=== PATIENT | female | born 1965 | race Caucasian/White ===

== ENCOUNTER 2022-09-04 14:33 | Outpatient (OUT) | payer OTHER, SELFPAY ==
--- NOTE | 2022-09-05 14:14 | ECG_ITS ---
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
[2022-09-05 15:56] LABS: Basophils Percent Auto 0.6 % (0.2-2.0); Eosinophils Absolute Auto 0.2 10^3/uL (0.0-0.7); Eosinophils Percent Auto 3.3 % (0.9-7.0); Hematocrit 38.5 % (36.0-48.0); Immature Granulocytes Abs Auto 0.02 10^3/uL (0.00-0.03); Immature Granulocytes Pct Auto 0.4 % (0.0-0.5); Lymphocytes Absolute Auto 1.4 10^3/uL (1.2-3.8); Lymphocytes Percent Auto 26.9 % (20.5-60.0); Mean Corpuscular HGB Conc 33.8 g/dL (29.9-35.2); Mean Corpuscular Hemoglobin 31.4 pg (26.7-34.0); Mean Platelet Volume 10.6 fL (9.5-13.5); Monocytes Absolute Auto 0.5 10^3/uL (0.3-0.8); Monocytes Percent Auto 9.6 % (1.7-12.0); Neutrophils Percent Auto 59.2 % (43.0-75.0); Platelet Count 249 10^3/uL (150-450); Red Blood Count 4.14 10^6/uL (4.20-5.40); Red Cell Distribution Width 12.9 % (11.0-15.0); White Blood Count 5.1 10^3/uL (4.0-11.0)
[2022-09-05 16:12] LABS: INR 0.96; Partial Thromboplastin Time 29.3 sec (22.3-36.2); Prothrombin Time 10.2 sec (9.0-11.6)
[2022-09-05 21:16] LABS: Alanine Aminotransferase 31 U/L (14-59); Albumin Globulin Ratio 1.2; Albumin Level 3.7 g/dL (3.4-5.0); Alkaline Phosphatase 53 U/L (46-116); Anion Gap 11.1; Aspartate Amino Transferase 28 U/L (15-37); BUN Creatinine Ratio 33.3; Bilirubin Direct 0.1 mg/dL (0.0-0.2); Bilirubin Total 0.4 mg/dL (0.2-1.0); Calcium 8.6 mg/dL (8.5-10.1); Carbon Dioxide 25.6 mmol/L (21.0-32.0); Chloride 102 mmol/L (98-107); Estimated GFR (African America >60 (>=60); Estimated GFR (Non-African Ame >60 (>=60); Globulin 3.2 g/dL; Glucose 96 mg/dL (74-106); Potassium 3.7 mmol/L (3.5-5.1); Sodium 135 mmol/L (136-145); Total Protein 6.9 g/dL (6.4-8.2)
== END 2022-09-04 14:34 | disposition home or self-care (01) ==
LOC: PST 10-16 14:33
PROVIDERS: Obstetrics & Gynecology; PCP Family Medicine
DX: Z01.812 Encounter for preprocedural laboratory examination (principal); Z01.810 Encounter for preprocedural cardiovascular examination; Z01.818 Encounter for other preprocedural examination; N81.3 Complete uterovaginal prolapse; R10.2 Pelvic and perineal pain; N94.10 Unspecified dyspareunia
CPT/HCPCS: 36415; 80048; 80076; 85025; 85610; 85730; 93005; G0463

== ENCOUNTER 2022-09-20 10:51 | Day surgery (SDC) | payer OTHER, SELFPAY ==
[2022-09-06 09:20] VITALS: PULSE 60; RESP 14; TEMP 36.5; O2SAT 98; BMI 27.4
--- NOTE | 2022-09-06 09:26 | P.GSHP_ITS ---
History of Present Illness History of Present Illness Chief complaint: HYSTERECTOMY Narrative: Patient presents for preadmission testing. The patient states she's been having pelvic pressure and painful intercourse and it has been determined that she has a prolapsed uterus. She is now scheduled for hysterectomy. She denies abdominal pain, nausea, vomiting, or any other complaints. Review of Systems ROS Narrative REVIEW OF SYSTEMS: Negative except as stated in HPI, ten or more systems reviewed. Constitutional: No feve r , chills, weakness ENT: No sore throat or epistaxis Cardiovascular: No edema, chest pain, or palpitations Respiratory: No shortness of breath, cough, or wheezing Musculoskeletal: No joint pain or swelling Gastrointestinal: No abdominal pain, constipation, diarrhea, or vomiting Genitourinary: No dysuria or hematuria Neurological: No numbness, tingling, weakness, or headache Psychiatric: No mood changes PFSH PFS Medical History (Updated 09/06/22 @ 09:23 by Bibiana Browne NP) Surgical History (Updated 09/06/22 @ 09:23 by Bibiana Browne NP) Family History (Updated 09/06/22 @ 09:23 by Bibiana Browne NP) Other CHF (congestive heart failure) Family history of diabetes mellitus Family history of heart disease Family history of hypertension Social History (Updated 09/06/22 @ 09:20 by Bibiana Browne NP) Within the past year, how often did you have a drink containing alcohol: 4 or more times a week Smoking status: Never smoker Non-prescribed substance use: denies use Previous occupational history: [employer] Highest level of school completed/degree received: high school graduate Meds [place] Medications and Allergies Allergies Allergy/AdvReac Type Severity Reaction Status Date / Time No Known Drug Allergies Allergy Verified 09/06/22 09:19 Exam Narrative Exam Narrative: Constitutional: Awake, alert, comfortable, well-appearing, nontoxic, interactive, vital signs as charted Head: Normocephalic, atraumatic Neck: Supple, normal appearance, normal range of motion, no meningeal signs, no lymphadenopathy Respiratory: No respiratory distress, breath sounds clear Cardiovascular: Regular rate and rhythm, strong and regular heart tones Abdomen: Nontender, normal bowel sounds, soft, no CVA tenderness Musculoskeletal: Normal gait, no swelling or edema Skin: No rashes or induration, no lesions, only visible skin inspected Neuro: No neurological deficits, normal sensation Psychiatric: Oriented ?3, normal affect Constitutional Vital Signs - 24 hr 09/06/22 09:20 Temperature 97.7 F Pulse Rate 60 Respiratory Rate 14 Pulse Oximetry 98 Oxygen Delivery Method Room Air Assessment and Plan Assessment and Plan (1) Dyspareunia: (2) Rectocele: (3) Uterine prolapse: Plan vNOTES hysterectomy, possible cystoscopy, possible bilateral salpingo- oophorectomy, possible exploratory laparotomy scheduled with Dr. Patel 09/20/2022. Date of Service Date of Service Date of service: 09/05/22
[2022-09-20] VITALS (14 sets, daily range): BP systolic 121–157; BP diastolic 70–89; PULSE 58–84; RESP 12–20; TEMP 36.1–37; O2SAT 94–100; BMI 27.7; BMI 28.5
[2022-09-20 11:05] LABS: Hematocrit 40.8 % (36.0-48.0); Hemoglobin 13.8 g/dL (12.0-16.0); Mean Corpuscular HGB Conc 33.8 g/dL (29.9-35.2); Mean Corpuscular Hemoglobin 31.4 pg (26.7-34.0); Mean Corpuscular Volume 92.7 fL (81.0-99.0); Platelet Count 207 10^3/uL (150-450); Red Cell Distribution Width 12.5 % (11.0-15.0); White Blood Count 4.6 10^3/uL (4.0-11.0)
[2022-09-20 11:21] LABS: HCG Quantitative <1 mIU/mL
[2022-09-20] MEDS: LACTATED RINGER'S SOLUTION 1,000 ML 50 ML IV ×2 (11:33→19:30)
[2022-09-20] MEDS: SCOPOLAMINE 1 EACH PATCH.TD.3 1 PATCH TD (12:13)
[2022-09-20] MEDS: CEFAZOLIN SODIUM/DEXTROSE,ISO 1 GM/50 ML IV.SOLN IV (12:52)
[2022-09-20] MEDS: LIDOCAINE HCL 1%-EPINEPHRINE 1:100,000 20 ML MDV INJ (13:49)
[2022-09-20] MEDS: 0.9 % SODIUM CHLORIDE 10 ML SYRINGE - SALINE FLUSH 30 ML INJ (13:49)
--- NOTE | 2022-09-20 15:01 | OP_ITS ---
OPERATION DATE: ??09/20/2022 PROCEDURE:? vNOTES hysterectomy with cystoscopy with bilateral salpingo- oophorectomy. PREOPERATIVE DIAGNOSIS:? 1.? Uterine prolapse. 2.? Pelvic pain. 3.? Vaginal discomfort. POSTOPERATIVE DIAGNOSIS: 1.? Uterine prolapse. 2.? Pelvic pain. 3.? Vaginal discomfort. ANESTHESIA:? General. SURGEON:? Ladarius Patel D.O. CONTACT CENTER TEAM LEAD:? CHANI Arellano URINE OUTPUT:? Yellow and clear. BLOOD LOSS:? 50 mL. SPECIMEN:? Uterus, tubes and ovaries. FINDINGS:? Normal appearing ovaries, uterus and tubes. PROCEDURE:? Patient was brought back to the operating room where she was given general anesthesia.? She was placed in the dorsal lithotomy position, after being prepped and draped in a sterile fashion.? A Johnson catheter was placed.? A weight speculum was placed posterior in the vagina.? The cervix was grasped anteriorly and posteriorly with two single tooth tenaculums and placed on traction.? A solution of Marcaine, lidocaine and epinephrine and saline was liberally infiltrated into the cervicovaginal junction.? The knife was then used to circumscribe the cervicovaginal junction and the posterior cul-de-sac was sharply entered without difficulty.?? The long weighted duck tail speculum was then placed and the peritoneum was tacked to the vaginal epithelium.? We then turned our attention to the uterosacral ligaments which were bilaterally cross clamped, transected and suture ligated, and they were held with hemostats.? Attention was then turned to the anterior compartment, where the cervicovaginal junction was similarly divided and the bladder was then sharply and bluntly dissected off the cervix and lower uterine segment, and the anterior cul-de-sac was sharply entered.? The epithelium was tacked to the peritoneum. Lateral attachments of the uterus were secured with Beltran clamps and suture ligated.? The retractors were then removed and were placed by the path inner ring anteriorly followed by posteriorly.? Once the ring was seated, the cap was placed and the laparoscopic ports were placed through this cap and the gas was allowed to insufflate the pelvis.? A GynLap was placed posteriorly to facilitate mobilization of the bowel and control bleeding.? This was later retrieved.? The LigaSure device was used to secure the lateral attachments of the uterus on the left side, including the cardinal ligaments and the uterine vasculature, once the utero-ovarian ligament was reached.? We turned attention to the right side, where the LigaSure device was used to fully detach the uterus from the pelvic side wall.? The ureters were seen visually; before, during and after the pedicles were created.? The ureters were bilaterally in normal locations, peristalsing.? On the right side, infundibular pelvic ligament was transected and ligated with excellent hemostasis detaching the tube and ovary. this was done on the contralateral side as well.? The uterus, both fallopian tubes and ovaries were removed from the field.? The GynLap was also removed from the field.? The inner ring and gel ports cap were removed and the vaginal retractors were replaced.? Lateral figure of eight sutures were placed bilaterally where bleeding occurred behind the ring and no further sutures were needed.? The colpopexy was then carried out, passing a stitch posterior to the vaginal wall, capturing the left uterosacral ligament, going across the posterior peritoneum to the right uterosacral ligament and exiting out the vaginal wall posteriorly.? The vaginal cuff was then closed in a single running/locking stitch, using O Monocryl and the uterosacral ligaments were cut.? Once the vaginal cuff was fully closed, the uterosacral colpopexy stitch was then tied down tightly, elevating the vaginal cuff to the uterosacral ligaments in a satisfactory manner.? The Johnson catheter was removed and the patient was awakened and taken recovery in excellent condition.? Sponge, lap, needle counts correct x2.? MTDD
--- NOTE | 2022-09-20 15:23 | PC.NURSE ---
Patient had a 16 setswana catheter placed before case began by Miguel Ángel López, at end of case catheter was d/c'ed per surgeon's orders. There was 400 cc of clear/yellow urine at that time.
[2022-09-20] MEDS: IBUPROFEN 400 MG TABLET 800 MG PO (16:52)
[2022-09-21 04:15] VITALS: O2SAT 96
[2022-09-21 05:00] LABS: Basophils Percent Auto 0.2 % (0.2-2.0); Eosinophils Percent Auto 0.1 % (0.9-7.0); Hematocrit 40.9 % (36.0-48.0); Hemoglobin 13.4 g/dL (12.0-16.0); Immature Granulocytes Abs Auto 0.04 10^3/uL (0.00-0.03); Immature Granulocytes Pct Auto 0.4 % (0.0-0.5); Lymphocytes Absolute Auto 1.4 10^3/uL (1.2-3.8); Lymphocytes Percent Auto 13.2 % (20.5-60.0); Mean Corpuscular HGB Conc 32.8 g/dL (29.9-35.2); Mean Corpuscular Hemoglobin 31.2 pg (26.7-34.0); Mean Corpuscular Volume 95.1 fL (81.0-99.0); Mean Platelet Volume 10.5 fL (9.5-13.5); Monocytes Absolute Auto 0.8 10^3/uL (0.3-0.8); Monocytes Percent Auto 8.1 % (1.7-12.0); Neutrophils Absolute Auto 8.1 10^3/uL (1.4-6.5); Platelet Count 213 10^3/uL (150-450); Red Cell Distribution Width 12.4 % (11.0-15.0); White Blood Count 10.4 10^3/uL (4.0-11.0)
[2022-09-21 05:31] VITALS: BP 124/77; PULSE 54; RESP 20; TEMP 36.4; O2SAT 97
[2023-03-01 14:16] LABS: General Pathology SENT
== END 2022-09-21 08:30 | disposition home or self-care (01) ==
LOC: SURGOUT 15:47 → MS 09-21 08:00 → SURGOUT 09-21 10:11 → MS 09-21 10:13
PROVIDERS: PCP Family Medicine; Visit Provider Obstetrics & Gynecology
PROC: (CPT 58552; principal; 2022-09-20 12:00)
DX: N81.4 Uterovaginal prolapse, unspecified (principal); R10.2 Pelvic and perineal pain; N94.10 Unspecified dyspareunia; Z98.51 Tubal ligation status; N72 Inflammatory disease of cervix uteri; N83.8 Other noninflammatory disorders of ovary, fallopian tube and broad ligament
CPT/HCPCS: 58552; 36415; 84702; 85025; 85027; 86850; 86900; 86901; 88305; 94761; G0463; J2704